=== PATIENT | male | born 1990 | race Caucasian/White ===

== ENCOUNTER 2021-11-05 22:56 | Emergency (ER) | payer OTHER, SELFPAY ==
[2021-11-05 23:28] VITALS: BP 161/89; PULSE 81; RESP 18; TEMP 36.7; O2SAT 99; BMI 31.7
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
[2021-11-06] MEDS: iohexol 350 mg/mL 100 mL Btl IV (00:21)
--- NOTE | 2021-11-08 14:58 | DCPLANNER ---
Addendum entered by Liberty Erwin 11/11/21 16:30: Patient had a follow up appointment scheduled for 11.11.21 with ortho - patient did attend appointment. Original Note: marina manager had message to schedule a follow up appointment for patient with ortho. marina manager sent patients information to the front office staff at ortho. Patients information will be printed and reviewed. Clinic will call patient with appointment information.
== END 2021-11-06 01:37 | disposition home or self-care (01) ==
PROVIDERS: Emergency Provider Emergency Medicine
DX: S32.010A Wedge compression fracture of first lumbar vertebra, initial encounter for closed fracture (principal); S20.219A Contusion of unspecified front wall of thorax, initial encounter; V86.59XA Driver of other special all-terrain or other off-road motor vehicle injured in nontraffic accident, initial encounter
CPT/HCPCS: 71260; 74177; 99284; Q9967

== ENCOUNTER → 2021-11-11 15:17 | Outpatient (BNVA) | payer OTHER, SELFPAY | PROVIDERS: Visit Provider Orthopaedic Surgery | DX: S32.010A Wedge compression fracture of first lumbar vertebra, initial encounter for closed fracture (principal); X58.XXXA Exposure to other specified factors, initial encounter; W19.XXXA Unspecified fall, initial encounter | CPT/HCPCS: 72100 ==

== ENCOUNTER → 2021-11-25 14:51 | Outpatient (BNVA) | payer OTHER, SELFPAY | PROVIDERS: Visit Provider Physician Assistant | DX: M47.816 Spondylosis without myelopathy or radiculopathy, lumbar region (principal); M48.56XA Collapsed vertebra, not elsewhere classified, lumbar region, initial encounter for fracture; M25.78 Osteophyte, vertebrae | CPT/HCPCS: 72100 ==

== ENCOUNTER → 2022-01-06 13:45 | Outpatient (BNVA) | payer OTHER, SELFPAY | PROVIDERS: Visit Provider Physician Assistant | DX: S32.019A Unspecified fracture of first lumbar vertebra, initial encounter for closed fracture (principal); V86.99XA Unspecified occupant of other special all-terrain or other off-road motor vehicle injured in nontraffic accident, initial encounter | CPT/HCPCS: 72100 ==